=== PATIENT | female | born 2000 | race Caucasian/White ===

== ENCOUNTER 2021-05-23 23:46 | Inpatient (IN) | payer OTHER ==
[~2021-05-23] VITALS: Ht 162.6 cm; Wt 99.6 kg
[2021-05-23] MEDS ORDERED: HYDR10SY9 PO (23:53)
[2021-05-23] MEDS ORDERED: TRAZ-252 PO (23:53)
[2021-05-23] MEDS ORDERED: CYCL10TA17 PO (23:53)
[2021-05-23] MEDS ORDERED: GABA-1181 PO (23:53)
[2021-05-24] MEDS ORDERED: IOHEXOL 350 MG/ML 100 ML VIAL ONE (00:12)
[2021-05-24] MEDS ORDERED: SODIUM CHLORIDE 0.9% 100 ML ONE (00:12)
[2021-05-24 00:22] LABS: BASOPHILS % (AUTO) 0.5 % (0.0-2.0); EOSINOPHILS % (AUTO) 4.1 % (1.0-6.0); HEMATOCRIT 41.7 % (36-46); HEMOGLOBIN 14.1 g/dL (12.0-16.0); LYMPHOCYTES % (AUTO) 36.5 % (22.0-44.0); MEAN CORPUSCULAR HEMOGLOBIN 27.1 pg (26.0-34.0); MEAN CORPUSCULAR HGB CONC 33.7 G/dL (31.0-37.0); MEAN CORPUSCULAR VOLUME 80 fL (80-100); MONOCYTES # (AUTO) 0.7 K/uL (0.1-1.0); MONOCYTES % (AUTO) 5.9 % (2.0-9.0); NEUTROPHILS # (AUTO) 5.8 K/uL (1.8-7.7); PLATELET COUNT (AUTO) 348 K/uL (150-450); RED BLOOD CELL COUNT(AUTO) 5.18 MIL/uL (4.00-5.20); RED CELL DISTRIBUTION WIDTH 13.4 % (11.5-14.5)
[2021-05-24 00:30] LABS: ANION GAP 10 mmol/L (8-16); CALCIUM, TOTAL 9.8 mg/dL (8.8-10.5); CARBON DIOXIDE 27 mmol/L (22-29); CHLORIDE 102 mmol/L (98-107); CREATININE 0.91 mg/dL (0.60-1.30); GLOMERULAR FILTR. RATE CALC > 60 mL/min (>60); GLUCOSE,RANDOM 107 mg/dL (70-110); POTASSIUM 3.8 mmol/L (3.5-5.1); SODIUM SERUM 139 mmol/L (136-145); UREA NITROGEN, BLOOD 10 mg/dL (7-18)
[2021-05-24 00:40] LABS: INR 0.9 (0.9-1.1)
[2021-05-24 00:41] LABS: ALANINE AMINOTRANSFERASE 32 U/L (12-78); ALBUMIN 3.9 g/dL (3.4-5.0); ALKALINE PHOSPHATASE 106 U/L (46-116); ASPARTATE AMINOTRANSFERASE 20 U/L (15-37); BILIRUBIN,TOTAL 0.3 mg/dL (0.1-1.0); HCG,QUANTITATIVE < 1 mIU/mL (0-6); TOTAL PROTEIN, SERUM 8.4 g/dL (6.4-8.2)
[2021-05-24 01:09] LABS: APPEARANCE,URINE CLEAR (CLEAR); BILIRUBIN,URINE NEGATIVE (NEGATIVE); GLUCOSE, URINE (UA) NEGATIVE (NEGATIVE); KETONES,URINE NEGATIVE (NEGATIVE); LEUKOCYTE ESTERASE ,URINE NEGATIVE (NEGATIVE); NITRATE,URINE NEGATIVE (NEGATIVE); OCCULT BLOOD,URINE LARGE (NEGATIVE); PH,URINE 6.5 (5.0-8.0); PROTEIN,URINE TRACE mg/dL (NEGATIVE); UROBILINOGEN,URINE <=1.0 mg/dL (<=1.0)
[2021-05-24 01:15] LABS: AMPHET/METH SCREEN,URINE NEGATIVE (NEGATIVE); BARBITURATE SCREEN, URINE NEGATIVE (NEGATIVE); BENZODIAZEPINES SCREEN,URINE NEGATIVE (NEGATIVE); CANNABINOID SCREEN,URINE NEGATIVE (NEGATIVE); COCAINE SCREEN,URINE NEGATIVE (NEGATIVE); METHADONE SCREEN, URINE NEGATIVE (NEGATIVE); OPIATE SCREEN,URINE NEGATIVE (NEGATIVE); PHENCYCLIDINE SCREEN,URINE NEGATIVE (NEGATIVE)
[2021-05-24 01:16] LABS: SPECIFIC GRAVITIY, URINE > 1.050 (1.003-1.030)
[2021-05-24 01:24] LABS: BACTERIA,URINE None Seen /HPF (None Seen); SQUAMOUS EPITHELIAL CELL,UR Few /LPF (None Seen)
[2021-05-24] MEDS ORDERED: DiphenhydrAMINE HCL 50 MG/ML VIAL IVP ONE (01:30)
[2021-05-24] MEDS ORDERED: LORazepam 2 MG/ML VIAL IVP ONE (01:30)
[2021-05-24] MEDS ORDERED: ASPIRIN 81 MG CHEWABLE TABLET PO ONE (01:45)
[2021-05-24 02:55] LABS: COVID AG,FIA SOURCE NASAL SWAB
[2021-05-24 04:20] VITALS: BP 138/87
[2021-05-24 07:44] VITALS: BP 109/64
[2021-05-24] MEDS ORDERED: ACETAMINOPHEN 325 MG TABLET PO PRN (08:00)
[2021-05-24] MEDS ORDERED: MAGNESIUM HYDROXIDE SUSPENSION 30 ML UDCUP PO PRN (08:00)
[2021-05-24] MEDS ORDERED: LORazepam 1 MG TABLET PO PRN (08:45)
[2021-05-24] MEDS ORDERED: FAMOTIDINE 20 MG TABLET PO SCH (09:00)
[2021-05-24 11:08] VITALS: BP 128/67
[2021-05-24 16:09] VITALS: BP 103/59
== END 2021-05-24 18:13 | disposition home or self-care (01) | DRG 882 ==
LOC: EMS 23:46 → 5N 05-24 03:00 → 5S 05-24 04:49
PROVIDERS: ADMIT Internal Medicine; ATTEND Internal Medicine
DX: F45.9 Somatoform disorder, unspecified (principal); R29.703 NIHSS score 3; E66.9 Obesity, unspecified; E78.00 Pure hypercholesterolemia, unspecified; F41.0 Panic disorder [episodic paroxysmal anxiety]; F32.A Depression, unspecified; Z20.822 Contact with and (suspected) exposure to COVID-19; Z79.899 Other long term (current) drug therapy; Z68.37 Body mass index [BMI] 37.0-37.9, adult; Z86.73 Personal history of transient ischemic attack (TIA), and cerebral infarction without residual deficits
CPT/HCPCS: 70496; 70498; 71045; 80053; 81001; 84484; 84702; 85025; 85610; 85730; 86850; 86900; 86901; 92610; 93005; 97116; 97162; 97530; 99291; J1200; J2060; J7050; Q9967; 36415-L1; 36415-TC; 70450; 70450-TC